=== PATIENT | male | born 1950 | race Caucasian/White ===

== ENCOUNTER 2017-12-20 09:46 | Day surgery (SDC) | payer MEDICARE ==
--- NOTE | 2017-12-17 12:30 | HP ---
DATE OF SURGERY: 12/20/2017 ANTICIPATED PROCEDURE: Cholecystectomy. HISTORY OF PRESENT ILLNESS: The patient has gallbladder sludge. HIDA scan 36%. Seen and examined. Multiple episodes of right upper quadrant pain to the back. PAST MEDICAL HISTORY: None. ALLERGIES: NONE. MEDICATIONS: None. PAST SURGICAL HISTORY: None. SOCIAL HISTORY: Negative. FAMILY HISTORY: Negative. REVIEW OF SYSTEMS: Negative. PHYSICAL EXAMINATION: VITAL SIGNS: Normal. CHEST: Clear. COR: Regular. ABDOMEN: No palpable organomegaly or mass. IMPRESSION: Gallbladder dyskinesia. PLAN: Laparoscopic cholecystectomy.
[2017-12-20] MEDS ORDERED: Zemuron 100 MG/10 ML IJ ONE (09:47)
[2017-12-20] MEDS ORDERED: DIPRIVAN 200 MG/20 ML IV ONE (09:47)
[2017-12-20] MEDS ORDERED: BREVIBLOC 100 MG/10 ML IV ONE (09:47)
[2017-12-20] MEDS ORDERED: SUBLIMAZE 250 MCG/5 ML IJ ONE (09:47)
[2017-12-20] MEDS ORDERED: Zofran 4 MG/2 ML VIAL IV ONE (09:47)
[2017-12-20] MEDS ORDERED: BRIDION 200MG/2ML IV ONE (09:47)
[2017-12-20] MEDS ORDERED: Ephedrine Sulfate 50 MG/ML IJ ONE (09:47)
[2017-12-20] MEDS ORDERED: Versed 2 MG/2 ML Injection IV ONE (09:47)
[2017-12-20] MEDS ORDERED: MEFOXIN 2 GM PREMIX** 2 GM/50 ML ML IV SCH (10:00)
[2017-12-20] MEDS ORDERED: Lactated Ringers 1,000 ML IV SCH (10:00)
[2017-12-20] MEDS ORDERED: MEFOXIN 2 GM PREMIX** 2 GM/50 ML ML IV ONE (10:02)
[2017-12-20] MEDS ORDERED: Lactated Ringers 1,000 ML IV ONE ×2 (10:03→10:45)
[2017-12-20] MEDS ORDERED: Sensorcaine 0.25% 10 ML ONE ×2 (10:45→14:15)
[2017-12-20 17:39] VITALS: PULSE 71
[2017-12-20 17:56] VITALS: BP 194/96; O2SAT 95
--- NOTE | 2017-12-21 07:45 | OP ---
SURGERY DATE/TIME: 12/20/2017 1540 PREOPERATIVE DIAGNOSIS: Gallbladder dyskinesia. POSTOPERATIVE DIAGNOSIS: Gallbladder dyskinesia. PROCEDURE: Laparoscopic cholecystectomy. SURGEON: Dr. Godwin. ANESTHESIA: General endotracheal tube. ESTIMATED BLOOD LOSS: Minimal. COMPLICATIONS: None. CONDITION: Stable. INDICATIONS: A patient with upper abdominal pain. Ultrasound negative. HIDA scan positive. The patient also had evaluation with Dr. Odonnell with endoscopic ultrasound felt to have gallbladder dyskinesia. DESCRIPTION OF PROCEDURE AND FINDINGS: Taken to surgery. General anesthetic, routine prep and drape. Veress needle inserted. Opening pressure of 1, insufflating pressure 14. Four - 5's. Good visualization. There were adhesions against the gallbladder that were taken down. Cystic duct was very small, triply clipped and transected 1 mm off the common bile duct. Cystic artery electrocoagulated in two areas which were small right up against the gallbladder. Gallbladder rolled out of gallbladder fossa. The gallbladder delivered through abdominal port with minimal widening. Hole closure device was used. CO2 was exsufflated. Skin closed with 4-0 Vicryl and Steri-Strips. The patient tolerated the procedure satisfactorily.
== END 2017-12-20 18:00 | disposition home or self-care (01) ==
LOC: SDC 09:46
PROVIDERS: ATTEND Surgery
DX: K82.8 Other specified diseases of gallbladder (principal); I10 Essential (primary) hypertension; J44.9 Chronic obstructive pulmonary disease, unspecified
CPT/HCPCS: 88304; 94250; J0694; J2250; J2405; J2704; J3010